=== PATIENT | male | born 1935 | race Caucasian/White ===

== ENCOUNTER 2018-12-05 21:33 | Inpatient (IN) | payer OTHER ==
[~2018-12-05] VITALS: Ht 177.8 cm; Wt 99.3 kg
[2018-12-05 20:05] VITALS: BP 185/84
[2018-12-05] MEDS ORDERED: ASPIR 8181 MG PO (22:08)
[2018-12-05] MEDS ORDERED: CARDIZEM LA300 M1 PO (22:11)
[2018-12-05] MEDS ORDERED: ARICEPT 5 MG TAB5 MG PO (22:11)
[2018-12-05] MEDS ORDERED: NAMENDA 10 MG T10 MG PO (22:12)
[2018-12-05] MEDS ORDERED: METOPROLOL SUCC25 M1 PO (22:13)
[2018-12-05] MEDS ORDERED: XANAX 0.25 MG0.25 MG PO (23:27)
[2018-12-05] MEDS ORDERED: XANAX 0.5 MG0.5 MG PO (23:28)
[2018-12-05] MEDS ORDERED: AMITRIPTYLINE H10 M3 PO (23:28)
[2018-12-05] MEDS ORDERED: TRAZODONE HCL50 MG PO (23:29)
[2018-12-05] MEDS ORDERED: CRESTOR40 MG PO (23:29)
[2018-12-05] MEDS ORDERED: ACCUPRIL40 MG PO (23:29)
[2018-12-05] MEDS ORDERED: LOPERAMIDE 2 MG2 M1 PO (23:31)
[2018-12-05] MEDS ORDERED: TYLENOL325 MG PO (23:31)
[2018-12-05] MEDS ORDERED: MILK OF MA400 MG/5 M PO (23:32)
--- NOTE | 2018-12-06 02:53 | NUR ---
Patient arrived via EMS from [facility] at 1999 on 12/05/18. Patient did reside at [facility] memory care unit prior to being sent to [facility] for eval and tx. Staff at [facility] reported that patient has been increasingly confused and agitated, making verbal threats to harm staff. Patient has been from for the last 3 weeks due to physical health of which has caused patient a lot of distress. Skin warm, dry and intact. Patient alert and oriented to person only. Patient could not recall the current month. Nurse asked for him to name one month out of the year. Patient could not process question or remember the name of a month. Patient was not able to state his birthday for nurse. Patient ate 100% dinner once arrived. No difficulty chewing or swallowing observed. Patient is on a Regular diet. Patient is a Do Not Resuscitate code status. Nurse spoke with patient son, Sheng MAN, to notify him that his dad arrived safely. Son did report that patient's memory has been progressively worsening since approximately 2017. He also reports that patient had a fall approximately one week ago at [facility]. Patient pleasant and cooperative. Patient is hyperactive. Pacing around the unit, in and out of patient rooms, requiring constant re-direction. Patient reports that he is worried about his and needs to use the phone "because I'm sure she is worried sick about me". Patient also reports that he needs someone to help him get some gas because his truck [place] of [place]. 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 Patient then asking staff and peers for a ride because his truck has a "flat tire out on that gravel road south". Med rec completed. Orders obtained from Dr. Babcock. Patient received Trazodone 50mg po, Haldol 5mg po and Ativan 0.5mg po at 2217. Patient encouraged and assisted to bed several times with no success. Patient continues to be worried about his and truck. No re-direction has been successful. Dr. Babcock notified. Order obtained for Ativan 1mg IM 1x dose at 0037. Injection given with staff x2. Patient is frequently incontinent of bowel and bladder. Patient wears briefs for protection and dignity. Patient ambulates without assistive devices. Gait is fairly steady. No agitation or aggression present this shift. Patient appears anxious and restless. Patient denies pain or discomfort. Patient's son reports that patient had back surgery in 1978 which has caused him to have an arthritic back. No s/s of pain or discomfort observed. Patient was able to lay down in bed at approximately 0130 and appears to be resting quietly.
[2018-12-06 07:45] VITALS: BP 141/66
--- NOTE | 2018-12-06 13:03 | NUR ---
HAS BEEN PACING IN HALLWAYS MAJORITY OF SHIFT SO FAR-WILL PERIODICALLY TAKE BRIEF 10-15 MINUTE REST IN DAYROOM WITH MUCH ENCXOURAGEMETN FROM STAFF. INTRUSIVE AT TIMES ENTERING PEERS ROOM BUT HAS REDIRECTED WITHOUT AGITATION SO FAR THIS SHIFT. APPEARS UNKEMPT-UNSHAVEN AND SMELLS MILDLY OF URINE-RESISTIVE WITH OFFERS OF SHAVE AND SHOWER STATING "I WILL BE LEAVING TO GO ACROSS THE STREET IN A FEW MINUTES" ORIENTED TO NAME ONLY-APPEARS DROWSY. COMPLIENT WITH AM MEDS WITH PROMTING,ENCOURAGEMENT. HAS VOIDED X1 IN STOOL TODAY-DID NEED ASSIST IN LOCATING ROOM.
--- NOTE | 2018-12-06 16:43 | NUR ---
SW called the NF in requested the DPOA paperwork. SW will follow-up with NF once its recieved.
[2018-12-06 19:44] VITALS: BP 128/61
--- NOTE | 2018-12-06 23:02 | NUR ---
ASSUMED CARE OF THE PT AT 191 PM. ALERT X ONE ONLY. HEART RATE REGULAR. LUNGS CLEAR BILATERALLY, RESP., EVEN, AND UNLABORED. +BS HEARD IN ALL 4 QUADRANTS. ABD SOFT ET NONTENDOR. +PP BILATERALLY. REMAINS ON 12 MINUTE CHECKS FOR HIS SAFETY.
--- NOTE | 2018-12-07 06:04 | NUR ---
the pt slept 7.4 hours last night.
[2018-12-07 08:26] VITALS: BP 120/78
--- NOTE | 2018-12-07 09:16 | H ---
[facility] [place] [address] HISTORY AND PHYSICAL Name: JOELLE HOUSE Room #: 526A-A ADM IN M.R.#: [id number] Admission: 12/05/18 ������������������ Attend Phys: Jose Antonio Babcock DO Discharge: ������������������ Date of : 34 Report #: [id number] THIS REPORT FOR: //name// CC: Jose Antonio Babcock [facility] physician/PCP DATE OF SERVICE: 12/06/2018 INPATIENT PSYCHIATRIC EVALUATION ATTENDING PSYCHIATRIST: Jose Antonio Magallanes D.O. DIRECTOR TARGETED MARKETING: Karan Carnes M.D. REASON FOR ADMISSION: Agitation and oppositional behavior at nursing facility. HISTORY OF PRESENT ILLNESS: This is an 83-year-old male sent via the [facility] to [facility]. The patient has been at [facility] and then moved to Memory Care there. He had been living with his who was transferred to a rehab facility following a hip fracture and recently the patient displayed aggression. They are concerned about his safety, safety to others, exit-seeking behavior, and fairly advanced dementia. I performed [facility] Mental Status Examination, and he scored 2/30. Dr. Bhargav De Leon is the primary care physician at [facility] at [phone]. His financial DPOA and health DOPA is his son Sheng House at [phone], I have left a voice mail for him. The patient has a DNR on file. His home medications include alprazolam 0.25 mg b.i.d., 0.5 mg b.i.d., amitriptyline 50 mg at bedtime, aspirin 81 mg p.o. daily, diltiazem 300 mg daily, donepezil 10 mg p.o. b.i.d., amantadine 10 mg p.o. daily, metoprolol succinate XL 25 mg p.o. daily, quinapril 40 mg p.o. b.i.d., trazodone 50 mg p.o. at bedtime, acetaminophen 650 q.4 hours p.r.n., and magnesium hydroxide 30 mL p.o. daily p.r.n. ADDITIONAL MEDICAL HISTORY: Hypertension, history of prostate cancer, coronary artery disease, and benign prostatic hypertrophy. 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 PAST SURGICAL HISTORY: Back surgery in 1978, arthritic back. No history of infections. PAST PSYCHIATRIC HOSPITALIZATIONS/health events: He had a fall at [facility] [address] [address] HISTORY AND PHYSICAL Name: JOELLE HOUSE Room #: 526A-A [facility] IN M.R.#: [id number] Admission: 12/05/18 ������������������ Attend Phys: Jose Antonio Babcock DO Discharge: ������������������ Date of : 34 Report #: [id number] The cognitive decline began around 2017. His ER physical was generally negative. LABORATORY DATA: Chemistry: Sodium 142, potassium 4.2, chloride 108, bicarb 28, anion gap 9, BUN 12, creatinine 1.1, random glucose 112, calcium 9.3, total bilirubin 0.4, AST 21, ALT 22, alk phos 100, total protein 7.6, albumin 3.4. White blood cell count 9.1, H and H 15.0 and 47.6, platelet count 225,000. UDS was negative except positive for benzodiazepines. Urinalysis was negative. He was given 5 of Haldol and 1 lorazepam at [facility] ED. VITAL SIGNS FROM [facility] ED: Blood pressure varied from 148-151 systolic and 84 to 64 diastolic, pulse varied between 78 and 66, that I could see. It looks like I do not have much in the way of records from [facility]. Additional information from the [facility] Psych Screener stated an 83-year-old male who presented to ED from [facility]. He and his were admitted there from their home just a few weeks ago. She broke her hip shortly thereafter and is now on disability. The patient has been increasingly confused and agitated since that time and the staff at the facility state that they are having difficulty handling his aggression. When asked to described, he states he has not hit or shoved at anyone, but did tell someone he would "bring a bat" and he also held out his fist in a threatening manner. 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 It looks the patient may have seen by Dr. Chanel at [facility], but they do not have the exact records for that. It looks like he was originally accepted at [facility], but that was subsequently then turned down. Also I just found a new number of Merary House, who is his [id number] and the cellphone for her and have another one for Sheng, so we will give that a try. I have some labs way back from 12/01/2018, TSH 2.023, B12 229 which is low. White count was 8.8, H and H 14.4 and 44.2, platelet count 207. Electrolytes looking normal, as well as kidney function. No alcohol. No smoking. No illicit drugs. REVIEW OF SYSTEMS: Here could not meaningfully be obtained due to the advanced nature of his dementia, [facility] Mental Status Examination score is 2/30. VITAL SIGNS: Today, BP 144/68, pulse 68. MENTAL STATUS EXAMINATION: GENERAL: This is a well-developed, disheveled female appearing at least stated age. Attention impaired. Concentration impaired. Speech very limited. Thought content: Gross poverty of thought. He is ambulatory. No psychomotor agitation. No psychomotor retardation. Denied auditory, visual, or tactile hallucinations. Denied suicidal intent or plan. Denied hopelessness or [facility] [address] [place] [address] HISTORY AND PHYSICAL Name: JOELLE HOUSE Room #: 526A-A ADM IN ..#: [id number] Admission: 12/05/18 ������������������ Attend Phys: Jose Antonio Babcock DO Discharge: ������������������ Date of : 34 Report #: [id number] helplessness. Denied homicidal intent or plan. Memory is noted to be grossly impaired. Insight impaired. Judgment impaired. Fund of knowledge were below average. FORMULATION: An 83-year-old male brought [facility] due to a major neurocognitive disorder with behavioral disturbance. DIAGNOSIS: Major neurocognitive disorder with behavioral disturbance, advanced. PLAN: Evaluate, stabilize, obtain collateral. I will attempt to reach his son and [id number] to discuss measures such as Depakote given his impulsivity. SECONDARY DIAGNOSIS: Includes B12 deficiency. We will attempt to treat that with some injections. ESTIMATED LENGTH OF STAY: 10-14 days. STRENGTHS: He is insured, has some family involved. WEAKNESSES: Advanced dementia, multiple comorbidities. Time spent on interview, review, evaluation of records at least 45 minutes. ��������������������������������������������� <ELECTRONICALLY SIGNED> ���������������������������������������� By: Jose Antonio Babcock DO ��������������������������������������������� 12/07/18 0916 [id number] Jose Antonio Babcock DO /nt
[2018-12-07 19:35] VITALS: BP 159/82
--- NOTE | 2018-12-07 23:30 | NUR ---
ASSUMED CARE @ 1900 ON 12/07/18, AMBULATING AT WILL THROUGHOUT THE UNIT. ENTERS OTHER PATIENTS ROOMS, EQUIRING CONTINUAL REDIRECTION. A&OX 1 TO SELF ONLY. BELIEVES HE IS IN HIS OWN HOME, BECOMES AGITATED WHEN TOLD THAT HE IS IN THE HOSPITAL. TOOK HS MEDS IN [place]. WHEN NOT SLEEPING BY 2230, GIVEN TRAZADONE 50 FOR INSOMNIA, AND TYLENOL 650 FOR GENERAL PAIN 10/31. STILL NOT ASLEEP BY 23:30, BECOMING INCREASINGLY AGITATED WHEN SHOWN TO OWN ROOM AND OWN BED, SAYING HE IS AT HOME AND NOT IN A HOSPITAL. WILL CONTINUE TO MONITOR Q 12 MINUTES FOR PT SAFETY.
--- NOTE | 2018-12-08 06:46 | NUR ---
SLEPT 5 HOURS TOTAL.
--- NOTE | 2018-12-08 18:14 | NUR ---
ASSUMED CARE AT 0730 - PATIENT PLEASANTLY CONFUSED. WANDERS ABOUT - SHUFFLES SLOWLY AROUND UNIT. MEDICATION COMPLIANT. APPETITE GOOD. EASILY REDIRECTED WITHOUT AGITATION. SPENT GOOD AMOUNT OF TIME IN DINING AREA. AFFECT BRIGHT AND MOOD CALM. COMPLAINED OF NOT PAIN DISCOMFORT. DID NOT ATTEND MORING GROUP - ENCOURAGED TO ATTEND AFTERNOON.
[2018-12-08 19:37] VITALS: BP 146/61
--- NOTE | 2018-12-08 21:23 | NUR ---
ASSUMED CARE OF THE PT AT 191 PM. ALERT ET CONFUSED AT TIMES. HEART RATE REGULAR, LUNGS CLEAR BILATERALLY, RESP., EVEN, AND UNLABORED. +PP BILATERALLY. +BS HEARD IN ALL 4 QUADRANTS. ABD SOFT ET NONTENDOR. MUMBLES HE WALKS AROUND, HE WALKS SLOWLY AROUND THE UNIT, TAKES HIS MEDICATION WITHOUT ANY DIFFICULTY. REMAINS ON 12 MINUTE CHECKS FOR HIS SAFETY.
--- NOTE | 2018-12-09 09:38 | NUR ---
SW called son and he reported that his dad would not be returning to [facility], and that he was accepted to [facility] care [phone]. Sw called and confirmed this . Will send updates. Son also reported that pt's spouse who is currently being rehabed at [facility] for her broken hip will likely be transfered to [facility] early next week. Sw provided education regaridng the expectation of this d/c.
[2018-12-09 10:05] VITALS: BP 133/60
--- NOTE | 2018-12-09 10:15 | NUR ---
TOOK OVER CARE OF PATIENT AT 0730 - AMBULATORY - SLOWLY SHUFFLES FEET. MED COMPLIANT. WANDERS AROUND UNIT - NEEDS REDIRECTION - LUNGS CLEAR AND HEART RATE STRONG AND STEADY. EDEMA +2 LOWER EXTREMITIES. NO THOUGHTS OF S/I - AFFECT REMAINS FLAT AND SERIOUS AND MOOD SERIOUS - RESPONSIVE TO QUESTIONS. CONFUSED AND RESTLESS -
[2018-12-09 19:37] VITALS: BP 164/64
--- NOTE | 2018-12-10 00:25 | NUR ---
Care assumed of patient at 1900: Patient alert and oriented to person. Patient ambulating about the unit hallways, rooms, dining rooms. Patient required frequent re-direction to stay in his room, hallways or activity room only. Patient irritable when re-directed. Patient has a blunted affect. Patient would put his finger in staff faces when he becomes irritable. Patient has disorganized speech. Patient would switch topic to topic, sentence by sentence. Patient assisted and encouraged to use the bathroom. Incontinent of bladder. [place] care provided and clothing changed. Denies SI/HI/AH/VH. No s/s of delusional or paranoia behavior. Patient did not show any aggressive behaviors this shift. Patient took medications whole. Patient argued at first then took medication. Multiple re-direction required to get patient to his room to lay down in bed. Once patient layed down, he was able to go to sleep without difficulty.
--- NOTE | 2018-12-10 09:49 | NUR ---
[id number]: Report rec from noc shift, care assumed.Pt observed walking in room, pants on back wards and no socks or shoes on, assisted pt with dressing in clothes and putting on yellow no skid socks. Pt cooperative with staff, needs frequent reminders to complete task, ambulatory with stand by assist, gait slow/weak. Feeds self with set-up assist, appetite good, consumed approx 75% of meal, takes meds whole w/o difficulty. Attending therapy group, with maximal participation noted. Confused to place, time and situation, oriented to name only. Attended 09 therapy group, moderate participation noted.
[2018-12-10 17:23] VITALS: BP 167/61
[2018-12-10 20:26] VITALS: BP 92/50
[2018-12-10 20:27] VITALS: BP 128/71
--- NOTE | 2018-12-11 02:21 | NUR ---
Care assumed of patient at 1900: Patient alert and oriented to person. Patient confused and disoriented. Patient required frequent re-direction. Patient often declining any assist from staff this shift. Patient fixated on going home before he will go to bed. Re-orientation not effective. Patient wandering about the halls, rooms, day room. Patient irritable when re-directed. Patient declined any assist with toileting and personal hygiene. Patient took scheduled HS medication whole without difficulty. Patient offered PRN Trazadone. Patient stated that he has no idea who nurse is and can't trust anyone. Patient declined to take medication. Patient started to become tired and allowed nurse to assist him to the bathroom then to bed at approximately 0100. Patient has been resting quietly in bed since.
[2018-12-11 09:40] VITALS: BP 114/54
[2018-12-11 11:01] VITALS: BP 114/54
--- NOTE | 2018-12-11 11:16 | NUR ---
ASSUMED CARE AT 0700 THIS MORNING. HE WAS ON THE UNIT FOR BREAKFAST. TOOK MEDICATIONS WITHOUT PROBLEMS NOTED. SAT ON THE UNIT FOR GROUP, HAS BEEN COOPERATIVE WITH THIS TECHNICAL SERVICES COORDINATOR. DENIES SI/HI AND AVH AT THIS TIME. VALPORIC ACID DRAWN TODAY AND RETURNED AT 44. ALYSON FRAZIER INFORMED OF THE LAB AND THE FACT THIS HIS DEPAKOTE IS 750 MG Q HS. NO NEW ORDERS RECEIVED. PT. CONTINUES TO BE BLUNTED AND WRESTLESS. HE SLEPT 5 HOURS LAST NIGHT AFT REFUSING HIS TRAZADONE AT HIS. HE REMAINS INCONTINENT OF BOWEL AND BLADDER.
--- NOTE | 2018-12-11 14:52 | NUR ---
Fransisca sent updates to Tania Mckenna [phone]
--- NOTE | 2018-12-11 19:25 | NUR ---
ASSUMED CARE @ 1900, SITTING IN THE DAY ROOM WATCHING TV. AA&O X 3. WILL CONTINUE TO MONITOR.
[2018-12-11 19:54] VITALS: BP 141/61
--- NOTE | 2018-12-11 23:18 | NUR ---
LAID DOWN AND SLEPT FOR AN HOUR. WHEN HE WOKE UP AND GOT UP HE BECAME AGITATED AND AGRESSIVE WITH AIDES THEY TRIED TO HELP HIM WITH ADLS AND RETURN TO BED. PATIENT SWUNG HIS FIST AT AIDES, AND X2 ASSIST WAS NEEDED TO KEEP PATIENT FROM FALLING. SECURITY CALLED X2 SECURITY ASSISTED TO KEEP PATIENT FROM TOUCHING ROOM MATE AND OUT OF OTHER PATIENTS ROOMS. ORDER OBTAINED FOR 5 MG ZYPREXA ODT Q 6 HOURS PRN SEVERE AGITATION @ 22:30. PT REFUSED ODT ZYPREXA AND SAID THAT HE WANTED TO SEE THE ORDER FROM THE DOCTOR. ORDER OBTAINED FOR 5 MG HALDOL X1. PRINTED EMAR TO SHOW PATIENT THE ORDER AND GAVE INJECTION @ 2300 X2 SECURITY ASSISTANCE. PATIENT STAYED IN BED, AND THEN TOOK PO PRN TYLENOL 650 FOR GENERAL PAIN AND PRN TRAZADONE FOR SLEEP. WILL CONTINUE TO MONITOR Q 12 MINUTES FOR PATIENT SAFETY.
--- NOTE | 2018-12-12 06:01 | NUR ---
PATIENT RESPONDING TO NOT BEING ALLOWED TO WALK AD [facility] BY PICKING UP A CHAIR AND TRYING TO HIT STAFF WITH IT. ORDER OBTAINED FROM ALYSON CORONADO FOR 2.5MG IM HALDOL STAT. SECURITY ASSISTED.
--- NOTE | 2018-12-12 06:47 | NUR ---
SLEPT A TOTAL OF 5 HOURS.
[2018-12-12 07:00] VITALS: BP 158/64
[2018-12-12 10:30] VITALS: BP 158/640
--- NOTE | 2018-12-12 12:02 | NUR ---
Date of Admission: 12/05/18 Date of Activity Therapy Assessment: 12/08/18 Activity Goal: Increase engagement Initial Goal: 1 Group activity/day Weekly progress towards goal: Did not achieve goals Group participation level: Needs some assistance Behaviors observed: Patient is frequently observed to wander unit hallways and is difficult to engage at these times. Engagement in groups remains limited d/t low cognition. Plan: Continue current goal. Provide 1:1 engagement if group participation is low.
[2018-12-12] MEDS ORDERED: LIPITOR 20 MG T20 M1 PO (15:43)
[2018-12-12] MEDS ORDERED: METOPROLOL SUCC25 M1 PO (15:44)
[2018-12-12] MEDS ORDERED: CARDIZEM CD 30300 M1 PO (15:44)
[2018-12-12] MEDS ORDERED: BENAZEPRIL HCL40 MG PO (15:45)
[2018-12-12] MEDS ORDERED: ASPIR 8181 MG PO (15:46)
[2018-12-12] MEDS ORDERED: DIVALPROEX SOD500 M1 PO (15:47)
[2018-12-12] MEDS ORDERED: TRAZODONE HCL100 MG PO (15:47)
[2018-12-12] MEDS ORDERED: OLANZAPINE ODT5 MG SUBLING (15:47)
--- NOTE | 2018-12-12 17:52 | NUR ---
Pt has been accpted to [facility]. Pt will be transported by his son, Sheng, to the placement. Sheng will pick Pt up around 5:30pm.
--- NOTE | 2018-12-12 18:36 | NUR ---
QUIET UNEVENTFUL DAY. CALM AND COOPERATIVE. ATE ALL OF HIS MEALS. SHUFFLED GAIT NOTED. DENIED PAIN. SAT IN DAY ROOM MOST OF THE DAY. SHOWERED WITH ASSISTANCE. SPEECH HARD TO UNDERSTAND. PATIENT'S SON TOOK EUGENIO PROVIDED TRANSPORTATION TO [facility] UNIT BY CAR. REPORT CALLED TO MALINA RIVERA. DISMISSED IN STABLE CONDITION.
--- NOTE | 2018-12-14 09:20 | D ---
[facility] [place] [address] DISCHARGE SUMMARY Name: JOELLE MARTINEZ Room #: 526A-A [facility] IN M.R.#: [id number] Admission: 12/05/18 ������������������ Attend Phys: Jose Antonio Babcock DO Discharge: 12/12/18 ������������������ Date of : 34 Report #: [id number] THIS REPORT FOR: //name// CC: Jose Antonio Babcock [facility] unknown DATE OF SERVICE: 12/12/2018 INPATIENT PSYCHIATRIC DISCHARGE SUMMARY ATTENDING PHYSICIAN: Jose Antonio Babcock DO SOFTWARE DESIGNER: Dr. Jose Antonio Dwyer. DISCHARGE DIAGNOSES: Are as follows: Major neurocognitive disorder with behavioral disturbance, likely due to Alzheimer disease, improved. MEDICAL COMORBIDITIES: Hypertension, stable; coronary artery disease, stable; benign prostatic hypertrophy, stable. DISCHARGE MEDICATIONS: Are as follows: Atorvastatin 20 mg p.o. at bedtime, metoprolol succinate XL 25 mg p.o. daily, diltiazem hydrochloride 300 mg p.o. daily, benazepril hydrochloride 40 mg p.o. b.i.d. for hypertension, diltiazem for hypertension, metoprolol for cardioprotection, atorvastatin for hyperlipidemia, aspirin 81 mg chewable daily for cardioprotection, Depakote sodium 1000 mg p.o. at bedtime, that is extended release for mood stabilization; trazodone 100 mg p.o. at bedtime p.r.n. for insomnia, olanzapine 5 mg sublingual p.o. q. 6 p.r.n. for severe agitation, magnesium hydroxide 30 mL p.o. daily p.r.n. for constipation. No EKG done at [facility]. DISCHARGE PLAN: Discharge to the [facility] in [place], psychiatric medical care per that facility. Diet for this patient there will be regular. ACTIVITY LEVEL: As tolerated. 14/12 memory care. Encourage ambulation. Depakote level was 44 on 750 mg ER, so I increased that up today to 1000 mg at bedtime. HOSPITAL COURSE: The patient was admitted from [facility], was in memory care there. The sums was performed, scored 2/30. Medications were streamlined. I spoke with the son who wished to pursue a new placement. The patient's spouse had been living with him and was transferred to rehabilitation facility following a hip fracture, which aggravated things. During the course of hospitalization, the patient improved as he has been [facility] [address] [place] [address] DISCHARGE SUMMARY Name: JOELLE MARTINEZ Room #: 526A-A [facility] IN ..#: [id number] Admission: 12/05/18 ������������������ Attend Phys: Jose Antonio Babcock DO Discharge: 12/12/18 ������������������ Date of : 34 Report #: [id number] agitated and oppositional in skilled nursing. On the day of discharge, he was felt to be in stable condition. LABORATORY RESULTS: Reviewed. PHYSICAL EXAMINATION: VITAL SIGNS: On the day of discharge are as follows: Temperature 36.7, pulse 58, respirations 16, BP 158/40, O2 sat 94%. MENTAL STATUS EXAMINATION: This is a well-developed, fairly nourished obese male with BMI of 31.4, appearing at least stated age. Attention limited. Concentration limited. Speech slowed. Thought process linear, limited. Thought content, fair poverty of thought. No psychomotor agitation. No psychomotor retardation. Denied auditory, visual or tactile hallucinations. Denied suicidal intent or plan. Denied hopelessness or helplessness. Denied homicidal intent or plan. Memory known to be impaired. Insight limited. Judgment limited. Fund of knowledge well below average. Prognosis for this patient is guarded given advanced age. Medical comorbidities and having significant major neurocognitive disorder with term as advanced. ��������������������������������������������� <ELECTRONICALLY SIGNED> ���������������������������������������� By: Jose Antonio Babcock DO ��������������������������������������������� 12/14/18 0920 [id number] Jose Antonio Babcock DO /nt
== END 2018-12-12 18:30 | DRG 57 ==
LOC: SBH 21:33 → ENTRNSPT 12-12 17:46 → SBH 12-12 18:30
PROVIDERS: ADMIT Psychiatry & Neurology Psychiatry
DX: G30.9 Alzheimer's disease, unspecified (principal); F02.81 Dementia in other diseases classified elsewhere, unspecified severity, with behavioral disturbance; I10 Essential (primary) hypertension; I25.10 Atherosclerotic heart disease of native coronary artery without angina pectoris; N40.0 Benign prostatic hyperplasia without lower urinary tract symptoms; Z79.82 Long term (current) use of aspirin; Z79.899 Other long term (current) drug therapy
CPT/HCPCS: 10880